=== PATIENT | female | born 1960 | race Two or more races ===

== ENCOUNTER 2019-04-12 13:10 | Emergency (ER) | payer BC ==
--- NOTE | 2019-04-12 14:18 | VNOTE ---
CALL BACK NOTE CALL BACK Patient LWBS after triage SHANA SHEA DO Apr 12, 2019 14:18
== END 2019-04-12 13:22 | disposition left against medical advice (07) ==
LOC: ER 13:10
DX: G43.909 Migraine, unspecified, not intractable, without status migrainosus (principal); Z53.21 Procedure and treatment not carried out due to patient leaving prior to being seen by health care provider

== ENCOUNTER 2019-06-15 06:02 | Emergency (ER) | payer BC ==
[~2019-06-15] VITALS: Ht 144.8 cm; Wt 45.4 kg
[2019-06-15] MEDS ORDERED: KETOROLAC 30 MG/ML VIAL. IVP ONE (06:45)
[2019-06-15] MEDS ORDERED: ONDANSETRON PF 4 MG/2 ML VIAL. IV ONE (06:45)
[2019-06-15] MEDS ORDERED: IV NORMAL SALINE 1000ML BAG 1,000 ML IV ONE (06:45)
[2019-06-15 07:02] LABS: BASO % 0 % (0-3); EOS % 1 % (0-3); HEMATOCRIT 40.2 % (36.0-47.0); HEMOGLOBIN 13.4 g/dL (12.0-15.5); LYMPH # 1.1 x10^3/uL (1.0-4.8); LYMPH % 16 % (24-48); MEAN CORPUSCULAR HEMOGLOBIN 30 pg (25-35); MEAN CORPUSCULAR HGB CONC 33 g/dL (31-37); MEAN CORPUSCULAR VOLUME 90 fL (79-100); MONO # 0.4 x10^3/uL (0.0-1.1); MONO % 5 % (0-9); NEUT # 5.5 x10^3/uL (1.8-7.7); NEUT % 77 % (31-73); PLATELET COUNT 218 x10^3/uL (140-400); RED BLOOD COUNT 4.47 x10^6/uL (3.50-5.40)
--- NOTE | 2019-06-15 07:21 | PHYS DOC ---
Past Medical History Past Medical History: Migraines Past Surgical History: No Surgical History Alcohol Use: None Drug Use: None Adult General Chief Complaint Chief Complaint: HEADACHE HPI HPI Patient is a 58 year old female with history of migraine who presents with complaint of neck pain and headache. Patient complaining pain in bilateral and posterior neck since yesterday morning as a constant pain and rated her pain 10 over 10. Patient states she started to have pain in her head since yesterday afternoon as a throbbing pain in the occipital and right side of her head like her previous episodes of migraine headache. Patient states recently she gets episodes of migraine headaches with starting neck pain and then headache. Patient complaining of nausea and photophobia without fever and chills, neck pain, injury, focal neuro deficit. Review of Systems Review of Systems Constitutional: Denies fever or chills [] Eyes: Denies change in visual acuity, redness, or eye pain [] HENT: Denies nasal congestion or sore throat [] Respiratory: Denies cough or shortness of breath [] Cardiovascular: No additional information not addressed in HPI [] GI: Denies abdominal pain, vomiting, bloody stools or diarrhea, reports nausea [] : Denies dysuria or hematuria [] Musculoskeletal: Denies back pain or joint pain, reports neck pain [] Integument: Denies rash or skin lesions [] Neurologic: Denies headache, focal weakness or sensory changes [] Endocrine: Denies polyuria or polydipsia [] All other systems were reviewed and found to be within normal limits, except as documented in this note. Current Medications Current Medications Current Medications Medications (Trade) Dose Ordered Sig/[facility] Start Time Stop Time Status Last Admin Dose Admin Ketorolac Tromethamine (Toradol 30mg Vial) 30 mg 1X ONCE 06/15/19 06:45 06/15/19 06:46 DC 06/15/19 06:55 30 MG Ondansetron HCl (Zofran) 4 mg 1X ONCE 06/15/19 06:45 06/15/19 06:46 DC 06/15/19 06:55 4 MG Sodium Chloride 1,000 ml @ 1,000 mls/hr 1X ONCE 06/15/19 06:45 06/15/19 07:44 DC 06/15/19 06:54 1,000 MLS/HR Allergies Allergies Allergies Coded Allergies Type Severity Reaction Last Updated Verified Sulfa (Sulfonamide Antibiotics) Allergy Unknown 06/15/19 Yes latex Allergy Unknown 06/15/19 Yes Physical Exam Physical Exam Constitutional: Well developed, well nourished, mild distress, non-toxic appearance. [] HENT: Normocephalic, atraumatic, bilateral external ears normal, oropharynx moist, no oral exudates, nose normal. [] Eyes: PERRLA, EOMI, conjunctiva normal, no discharge. [] Neck: Painful range of motion, no vertebral tenderness or neck rigidity, or lateral paraspinal muscle spasm,, supple, no stridor. [] Cardiovascular:Heart rate regular rhythm, no murmur [] Lungs & Thorax: Bilateral breath sounds clear to auscultation [] Abdomen: Bowel sounds normal, soft, no tenderness, no masses, no pulsatile masses. [] Skin: Warm, dry, no erythema, no rash. [] Back: No tenderness, no CVA tenderness. [] Extremities: No tenderness, no cyanosis, no clubbing, ROM intact, no edema. [] Neurologic: Alert and oriented X 3, normal motor function, normal sensory function, no focal deficits noted. [] Psychologic: Affect normal, judgement normal, mood normal. [] Current Patient Data Vital Signs Vital Signs Date Time Temp Pulse Resp B/P (MAP) Pulse Ox O2 Delivery O2 Flow Rate FiO2 06/15/19 07:50 77 16 100 06/15/19 06:16 97.3 113/77 (89) Room Air 97.3 Lab Values Laboratory Tests Test 06/15/19 06:25 White Blood Count 7.0 x10^3/uL (4.0-11.0) Red Blood Count 4.47 x10^6/uL (3.50-5.40) Hemoglobin 13.4 g/dL (12.0-15.5) Hematocrit 40.2 % (36.0-47.0) Mean Corpuscular Volume 90 fL (79-100) Mean Corpuscular Hemoglobin 30 pg (25-35) Mean Corpuscular Hemoglobin Concent 33 g/dL (31-37) Red Cell Distribution Width 13.0 % (11.5-14.5) Platelet Count 218 x10^3/uL (140-400) Neutrophils (%) (Auto) 77 % (31-73) H Lymphocytes (%) (Auto) 16 % (24-48) L Monocytes (%) (Auto) 5 % (0-9) Eosinophils (%) (Auto) 1 % (0-3) Basophils (%) (Auto) 0 % (0-3) Neutrophils # (Auto) 5.5 x10^3/uL (1.8-7.7) Lymphocytes # (Auto) 1.1 x10^3/uL (1.0-4.8) Monocytes # (Auto) 0.4 x10^3/uL (0.0-1.1) Eosinophils # (Auto) 0.0 x10^3/uL (0.0-0.7) Basophils # (Auto) 0.0 x10^3/uL (0.0-0.2) Sodium Level 140 mmol/L (136-145) Potassium Level 4.3 mmol/L (3.5-5.1) Chloride Level 103 mmol/L (98-107) Carbon Dioxide Level 26 mmol/L (21-32) Anion Gap 11 (6-14) Blood Urea Nitrogen 17 mg/dL (7-20) Creatinine 0.7 mg/dL (0.6-1.0) Estimated GFR (Cockcroft-Gault) 86.6 BUN/Creatinine Ratio 24 (6-20) H Glucose Level 96 mg/dL (70-99) Calcium Level 9.3 mg/dL (8.5-10.1) Total Bilirubin 0.5 mg/dL (0.2-1.0) Aspartate Amino Transferase (AST) 50 U/L (15-37) H Alanine Aminotransferase (ALT) 61 U/L (14-59) H Alkaline Phosphatase 90 U/L (46-116) Total Protein 7.4 g/dL (6.4-8.2) Albumin 3.7 g/dL (3.4-5.0) Albumin/Globulin Ratio 1.0 (1.0-1.7) Laboratory Tests 06/15/19 06:25 Laboratory Tests 06/15/19 06:25 EKG EKG [] Radiology/Procedures Radiology/Procedures [] Course & Med Decision Making Course & Med Decision Making Pertinent Labs reviewed. (See chart for details) Evaluation of patient in ER showed 58-year-old female patient with history of migraine headaches presented to ER with complaining of neck pain and headache si nce yesterday. Patient had unremarkable physical exam and labs except for mild elevation of liver function tests. Patient treated with IV fluid and Toradol with mild improvement of her pain. Patient drove to hospital by herself and was not able to get a ride to go back home and gets stronger pain medication and wants to go home and takes prescribed medication. I've spoken with the patient and/or caregivers. I've explained the patient's condition, diagnosis and treatment plan based on information available to me at this time. I've answered the patient's and/or caregivers questions and addressed any concerns. The patient and/or caregivers have a good understanding the patie nt's diagnosis, condition and treatment plan as can be expected at this point. Vital signs have been stabilized. The patient's condition is stable for discharge from the emergency department. The patient will pursue further outpatient evaluation with her primary care provider or other designated consulting physician as outlined in the discharge instructions. Patient and/or caregivers are agreeable to this plan of care and follow-up instructions have been explained in detail. The patient and/or caregivers have received these instructions in written format and expressed understanding of these discharge instructions. The patient and her caregivers are aware that if any significant change in condition or worsening of symptoms should prompt him to immediately return to this of the closest emergency department. If an emergent department is not readily available I would encourage him to call 911. Dragon Disclaimer Dragon Disclaimer This electronic medical record was generated, in whole or in part, using a voice recognition dictation system. Departure Departure Impression: Primary Impression: Migraine headache Additional Impression: Acute cervical myofascial strain Disposition: HOME, SELF-CARE (at [id number]) Condition: STABLE Referrals: DANIEL ESPAÑA MD (PCP) Patient Instructions: Cervical Strain and Sprain with [facility], Migraine Headache Additional Instructions: Drink plenty of liquids Follow-up with your primary care physician in 3-5 days Return to ER if not getting better Apply ice on your neck Scripts Ondansetron Hcl (ZOFRAN) 4 Mg Tablet 1 TAB PO PRN Q6-8HRS for nausea, #12 TAB Prov: MERCED CASTILLO MD 06/15/19 Butalbital/Aspirin/Caffeine (FIORINAL 50-325-40 MG CAPSULE) 1 Each Capsule 1 EACH PO QID PRN for HEADACHE, #20 CAP Prov: MERCED CASTILLO MD 06/15/19 Cyclobenzaprine Hcl (CYCLOBENZAPRINE HCL) 10 Mg Tablet 1 TAB PO TID, #21 TAB Prov: MERCED CASTILLO MD 06/15/19 Problem Qualifiers Primary Impression: Migraine headache Migraine type: unspecified Status migrainosus presence: without status migrainosus Intractability: not intractable Qualified Codes: G43.909 - Migraine, unspecified, not intractable, without status migrainosus Additional Impression: Acute cervical myofascial strain Encounter type: initial encounter Qualified Codes: S16.1XXA - Strain of muscle, fascia and tendon at neck level, initial encounter MERCED CASTILLO MD Jun 15, 2019 07:21
[2019-06-15 07:28] LABS: CALCIUM 9.3 mg/dL (8.5-10.1); CREATININE 0.7 mg/dL (0.6-1.0); GFR 86.6; POTASSIUM 4.3 mmol/L (3.5-5.1)
[2019-06-15 07:35] LABS: ALBUMIN 3.7 g/dL (3.4-5.0); TOTAL BILIRUBIN 0.5 mg/dL (0.2-1.0); TOTAL PROTEIN 7.4 g/dL (6.4-8.2)
[2019-06-15 07:50] VITALS: BP 96/61
[2019-06-15] MEDS ORDERED: CYCL10TA2 PO (08:06)
[2019-06-15] MEDS ORDERED: BUTA1CAP31 PO (08:06)
[2019-06-15] MEDS ORDERED: ONDA4TAB7 PO (08:06)
== END 2019-06-15 08:22 | disposition home or self-care (01) ==
LOC: ER 06:02
DX: S16.1XXA Strain of muscle, fascia and tendon at neck level, initial encounter (principal); G43.909 Migraine, unspecified, not intractable, without status migrainosus; R11.0 Nausea; Z88.2 Allergy status to sulfonamides; Z91.040 Latex allergy status; X58.XXXA Exposure to other specified factors, initial encounter; Y93.89 Activity, other specified; Y92.89 Other specified places as the place of occurrence of the external cause; Y99.8 Other external cause status
CPT/HCPCS: 36415; 80053; 85025; 96374; 96375; 99284; J1885; J2405; J7030